=== PATIENT | male | born 1960 | race African-American/Black ===

== ENCOUNTER 2023-04-23 11:29 | Inpatient (IN) ==
[2023-04-23 12:40] LABS: BASOPHILS % (AUTO) 0.3 % (0.0-3.0); EOSINOPHILS % (AUTO) 0.6 % (0.0-7.0); HEMATOCRIT 36.6 % (42.0-52.0); HEMOGLOBIN 12.2 g/dl (14.0-18.0); IMMATURE GRANULOCYTE % (AUTO) 0.3 % (0.0-5.0); LYMPHOCYTES # (AUTO) 0.9 K/uL (0.60-3.4); LYMPHOCYTES % (AUTO) 26.3 (10.0-50.0); MEAN CORPUSCULAR HEMOGLOBIN 35.4 pg (27.0-31.0); MEAN CORPUSCULAR HGB CONC 33.3 (31.8-35.4); MEAN CORPUSCULAR VOLUME 106.1 fl (80.0-94.0); MONOCYTES # (AUTO) 0.3 K/uL (0.4-2.0); MONOCYTES % (AUTO) 9.8 (0-10); NEUTROPHILS # (AUTO) 2.1 K/ul (2.0-6.9); NEUTROPHILS % (AUTO) 62.7 % (42.2-75.2); PLATELET COUNT 221 10^3/uL (140-440); RED BLOOD COUNT 3.45 10^6/ul (4.70-6.10); WHITE BLOOD COUNT 3.27 K/ul (4.2-10.2)
--- NOTE | 2023-04-23 12:40 | ED.PDOC ---
General ED Provider: Dr. LILLIAM LYONS DO Chief Complaint: Abdominal Pain Stated Complaint: Patient is a 63 yo M here for multiple medical complaints Patient arrives afebrile and vitally stable He ambulated well to room 1 He reports headache, abdominal pain and discomfort He is a 1 PPD smoker He recently moved here from [place] and does not have a PCP He denies falls or injuries He does not feel as if he is getting sick No penile discharge or bleeding anywhere He is pleasant to talk too He has a cough but denies productive sputum He has a hx of BPH and a pending prostate BX he thinks, but cannot remember the details He can uriante as per usual, no discharge or new sexual partners Time Seen by Provider: 04/23/23 12:00 Information Source: Patient Nursing and Triage Documentation Reviewed and Agree: Yes What is Opioid Naive?: *Opioid Naive implies the patient is not already taking opioids or not chronically receiving opioids on a daily basis. *PRN dosing is not "usually" associated with tolerance. *Patients are at higher risk of over-sedation and aspiration. What is Opioid Tolerant?: *Opioid Tolerance implies less than the expected response to an opioid. *Acquired tolerance is defined by the patient taking 60mg of oral morphine daily (or equianalgesic dose of another opioid) for 1 week or more. *Often associated with chronic pain. *May take more than usual dose to achieve desired pain control. Review of Systems Review Of Systems Constitutional: Reports Malaise; Denies Chills or Fever Eyes: Denies Blindness or Vision change Ears, Nose, Mouth, Throat: Denies Ear pain, Nose pain or Nose discharge Respiratory: Reports Cough; Denies Stridor or Wheezing Cardiac: Denies Chest pain, Palpitations or Syncope GI: Reports Abdominal pain; Denies Nausea or Vomiting : Reports Other (decreased stream); Denies Burning, Dysuria or Discharge Musculoskeletal: Reports Back pain; Denies Joint pain Skin: Denies Bruising or Rash Neurological: Reports Headache; Denies Anxiety or Depressed Endocrine: Reports No symptoms Hematologic/Lymphatic: Reports No symptoms All Other Systems: Reviewed and Negative Physical Exam Physical Exam Appearance: Reports Well-appearing and Well-nourished Ill-appearing: Not Applicable Pain Distress: Mild Eyes: Reports SARAH, EOMI and Conjunctiva clear ENT: Reports Ears normal, Nose normal, Oropharynx normal and Other (Uvula midline, poor dentition) Neck: Supple Respiratory: Reports Airway patent and Breath sounds clear; Denies Wheezes Cardiovascular: Reports RRR and Pulses normal GI/: Reports Soft, Nontender and Other (no guarding, no peritonitis negative stewart sign no [place] ttp, no fluid wave) Musculoskeletal: Reports Normal strength, ROM intact and No edema Skin: Reports Warm and Dry Neurological: Reports Sensation intact and Motor intact Psychiatric: Reports Affect appropriate and Mood appropriate Interpretation EKG Interpretation EKG Interpretation By: ED Physician Time of EKG #1: 12:22 Rate: Shay Rhythm: Sinus Interpretation: rate 58 no stemi qt wnl Radiology Interpretation Radiology Interpretation By: ED Physician Radiology Results: Negative Exam Interpreted: CXR Xray Comments: No gross pneumothorax or rib fractures Course Course 04/23/23 12:35 04/23/23 12:35 Orders, Labs, Meds: Lab Review 04/23/23 04/23/23 12:25 12:35 WBC 3.27 L RBC 3.45 L Hgb 12.2 L Hct 36.6 L MCV 106.1 H MCH 35.4 H MCHC 33.3 RDW Coeff of Sydni 13.0 Plt Count 221 Immature Gran % (Auto) 0.3 Neut % (Auto) 62.7 Lymph % (Auto) 26.3 [place] % (Auto) 9.8 Eos % (Auto) 0.6 Baso % (Auto) 0.3 Neut # (Auto) 2.1 Lymph # (Auto) 0.9 [place] # (Auto) 0.3 L Eos # (Auto) 0.0 Baso # (Auto) 0.0 Immature Gran # (Auto) 0.0 Sodium 138.3 Potassium 4.67 Chloride 105.0 Carbon Dioxide 25.3 Anion Gap 12.67 BUN 50.0 H Creatinine 4.26 H* Estimated GFR (MDRD) 17.00 BUN/Creatinine Ratio 11.73 Glucose 99.0 Lactic Acid 0.64 L Calcium 10.30 H Total Bilirubin 0.67 AST 39.2 ALT 31.6 Alkaline Phosphatase 75.9 Troponin I < 0.012 Total Protein 8.62 H Albumin 4.25 Globulin 4.37 Albumin/Globulin Ratio 0.97 Lipase 137.2 Urine Color Yellow Urine Clarity Clear Urine pH 5.5 Ur Specific [place] 1.015 Urine Protein 1+ H Urine Glucose (UA) Negative Urine Ketones Negative Urine Blood 1+ H Urine Nitrite Negative Urine Bilirubin Negative Urine Urobilinogen 0.2 Ur Leukocyte Esterase Negative Urine Microscopic RBC 0-2 Ur Squamous Epith Cells Not Reportable Amorphous Sediment 2+ Influ A Molecular Assay Negative by naat Influ B Molecular Assay Negative by naat RSV Antigen Negative by naat SARS CoV-2 RNA Rapid JAMESON Negative Orders Category Date Time Status ADMIT PATIENT INPATIENT .TO MEDSURG (NON-MONITORED ADMISSION 04/23/23 14:26 Active BED) EKG-(ED ONLY) Stat CARDIO 04/23/23 12:15 Completed BLADDER SCAN ONCE CARE 04/23/23 13:03 Active NPO REMINDER: IMAGING ONCE CARE 04/23/23 12:16 Completed CBC W/ AUTO DIFF Stat LAB 04/23/23 12:35 Completed COMPREHENSIVE METABOLIC PANEL Stat LAB 04/23/23 12:35 Completed FLU A & B MOLECULAR [FLU A/B MOLECULAR] Stat LAB 04/23/23 12:25 Completed LACTIC ACID Stat LAB 04/23/23 12:35 Completed LIPASE Stat LAB 04/23/23 12:35 Completed RSV Stat LAB 04/23/23 12:25 Completed SARS COV-2 RNA RAPID JAMESON Stat LAB 04/23/23 12:25 Completed TROPONIN I Stat LAB 04/23/23 12:35 Completed URINALYSIS C & S IF INDICATED Stat LAB 04/23/23 12:25 Completed Sodium Chloride 0.9% [Sodium Chloride] 1,000 ml Meds 04/23/23 13:[address] ABDOMEN/PELVIS WO CONTRAST Stat RADS 04/23/23 13:[address] HEAD W/O CONTRAST Stat RADS 04/23/23 12:18 Completed CXR [CHEST, 2 VIEWS PA & LAT] Stat RADS 04/23/23 12:17 Completed Medications Discontinued Medications Generic Name Dose Route Start Last Admin Trade Name Freq PRN Reason Stop Dose Admin Sodium Chloride 1,000 mls @ 1,000 mls/hr 04/23/23 13:03 04/23/23 13:12 Sodium Chloride IV 04/23/23 14:02 1,000 mls/hr BOLUS ONE Administration Vital Signs: Temp Pulse Resp BP Pulse Ox 04/23/23 11:34 97.4 F L 71 18 117/81 99 MDM: Patient is a 63 yo M here for headache back ache and abdominal pain Patient afebrile and vitally stable Patient is a poor historian Exam reassuring 3+ labs and 3 images reviewed by me COnsult: Hospitalist JAMES Goff agrees with admission for treatment WDX: ARF, anemia, AAA (known), bladder wall hypertrophy acute moderate complexity DDX: I considered sepsis, shock, obstructive uropathy but these were not found Patient aware of AAA and iliac AA aneurysm, he has future appointment for BPH, prostate BX Patient amenable for admission for idiopathic ARF Patient stable for admission All questions answered SDOH: Patient needs to quit smoking and establish with a PCP Discharge Plan Discharge Patient Disposition: ADMITTED INPATIENT Discharge Problem: Acute renal failure, AAA (abdominal aortic aneurysm), Anemia, Aneurysm artery, iliac, Leukopenia, Bladder wall thickening Did you review [place] PHYSICIAN PRACTICE CONSULTANT for ALL controlled substances?: Not Applicable ED Provider: LILLIAM LYONS Condition: Good Physician Progress Note: []
[2023-04-23 12:44] LABS: MOLECULAR FLU A NEGATIVE BY NAAT (NEGATIVE); SARS COV-2 RNA RAPID NAAT NEGATIVE (NEGATIVE)
[2023-04-23 12:45] LABS: MOLECULAR FLU B NEGATIVE BY NAAT (NEGATIVE)
[2023-04-23 12:46] LABS: BILIRUBIN,URINE Negative (NEGATIVE); CLARITY,URINE Clear (CLEAR); COLOR,URINE Yellow (YELLOW); GLUCOSE, URINE (UA) Negative (NEGATIVE); KETONES,URINE Negative (NEGATIVE); LEUKOCYTE ESTERASE ,URINE Negative (NEGATIVE); NITRITE,URINE Negative (NEGATIVE); PH,URINE 5.5 (5-9); PROTEIN,URINE 1+ (NEGATIVE); URINE, BLOOD 1+ (NEGATIVE); UROBILINOGEN,URINE 0.2 (0.2)
[2023-04-23 12:49] LABS: URINE RBC, MICROSCOPIC 0-2 (0-2)
[2023-04-23 12:50] LABS: AMORPHOUS SEDIMENT,UR 2+ (NOT PRESENT)
[2023-04-23 12:52] LABS: ALANINE AMINOTRANSFERASE 31.6 U/L (0-50); ALBUMIN 4.25 g/dL (3.5-5.0); ALKALINE PHOSPHATASE 75.9 U/L (56-119); ASPARTATE AMINO TRANSFERASE 39.2 U/L (17-59); BILIRUBIN,TOTAL 0.67 mg/dL (0.2-1.3); CARBON DIOXIDE 25.3 mmol/L (22-30.0); LIPASE 137.2 U/L (23-300); POTASSIUM 4.67 mmol/L (3.5-5.1); SODIUM 138.3 mmol/L (134.5-145); TOTAL PROTEIN 8.62 g/dL (6.3-8.2)
[2023-04-23 12:54] LABS: RSV MOLECULAR NEGATIVE BY NAAT (NEGATIVE)
[2023-04-23 13:03] LABS: CREATININE 4.26 mg/dL (0.60-1.10)
[2023-04-23 13:06] LABS: TROPONIN I < 0.012 ng/ml (0.0000-0.120)
[2023-04-23] MEDS: SODIUM CHLORIDE 1,000 ML IV ONE (13:12)
--- NOTE | 2023-04-23 13:52 | DI ---
EXAM: CHEST TWO-VIEW HISTORY: Cough COMPARISON: 02/28/2020 FINDINGS: Cardiac silhouette and mediastinum are normal. There is no pulmonary infiltrate.There is no pleural effusion. Skeletal structures unremarkable IMPRESSION: Negative chest. No active cardiopulmonary disease
--- NOTE | 2023-04-23 13:54 | CT ---
EXAMINATION: HEAD CT WITHOUT CONTRAST HISTORY: Frontal headache. No trauma. TECHNIQUE: Noncontrast CT of the brain was performed with images acquired from skull base to vertex. 2-D coronal and sagittal reformatted images were obtained from the axial source images. CT Dose Reduction Techniques Performed: Yes. Contrast: None. COMPARISON: None. FINDINGS: Intraparenchymal hemorrhage: None. Parenchyma: Normal sanchez-white differentiation. No mass effect or midline shift. White matter is with in normal limits for age. Ventricles/Extra-axial spaces and basal cisterns: The ventricles and cortical sulci are mildly promin ent consistent with age related changes. There is no hydrocephalus . Paranasal sinuses and mastoid air cells: Visualized portions of paranasal sinuses are clear. Mastoid air cells are clear. Orbits: Normal visualized portions. Sella/Skull Base: Normal. Bones: Calvarium is normal. Scalp/Soft Tissues: Scalp and visualized soft tissues are normal. IMPRESSION: 1. No intracranial hemorrhage. 2. No acute findings. All CT scans are performed using dose optimization techniques as appropriate to the performed exam an d include at least one of the following: Automated exposure control, adjustment of the mA and/or kV according t o size, and the use of iterative reconstruction technique.
--- NOTE | 2023-04-23 14:10 | CT ---
EXAM: CT ABDOMEN AND PELVIS WITHOUT CONTRAST HISTORY: Abdominal pain. Acute kidney injury. TECHNIQUE: CT acquisition of the abdomen and pelvis from the lower thorax through the pelvis without IV contrast administration. 2-D coronal and sagittal reformatted images were obtained from the axial source images. Oral Contrast: None. CT Dose Reduction Techniques Performed: Yes. COMPARISON: CT abdomen from 12/03/[address] abdomen/pelvis from 07/25/2018. FINDINGS: Visualized portions of the lower chest included in this examination of the abdomen and pelvis again s how a calcified granuloma of the left lower lobe. Evaluation of the solid abdominal organs is limited without IV contrast. No obvious liver mass is id entified. No biliary tree dilatation. The gallbladder is present. Gallstones can not be excluded b y CT. The pancreas, spleen, and adrenal glands have a normal appearance. No stones identified in ei ther kidney, ureter, or the urinary bladder. No hydronephrosis. Mild asymmetric wall thickening of the bladder, predominately anteriorly. The prostate is prominent size, measuring 4.6 x 3.3 cm, about the same. Mild colonic diverticulosis. No evidence of diverticulitis. Nonvisualization of the abdi endix. No secondary signs of appendicitis. Small fat only containing umbilical and right inguinal h ernias, stable. Aneurysm of the infrarenal abdominal aorta, again noted. Measures 5.1 cm in maximum diameter, increased from 4.6 cm. Mild haziness in fat adjacent to the aortic bifurcation, similar to the prior study from July 2018. Aneurysm of the right common iliac artery, stable. Measures 2.5 cm. Aneurysm of the left common iliac artery, also stable. Measures 1.8 cm. No free air or free fluid. No enlarged lymph nodes identified. Bone window images show no significant lytic or sclerotic bone lesions. IMPRESSION: 1. 5.1 cm aneurysm of the infrarenal abdominal aorta, increased in size from cm. Outpatient vascula r surgery consultation is recommended. 2. Stable 2.5 cm aneurysm of the right common iliac artery and 1.8 cm aneurysm of the left common il iac artery. 3. Mild asymmetric wall thickening of the bladder, abdominal anteriorly. I suspect represents eithe r bladder wall hypertrophy or cystitis. I would doubt but cannot exclude mass. All CT scans are performed using dose optimization techniques as appropriate to the performed exam an d include at least one of the following: Automated exposure control, adjustment of the mA and/or kV according t o size, and the use of iterative reconstruction technique.
[2023-04-23] MEDS ORDERED: ZOFRAN 4 MG/2 ML IVP PRN (15:13)
[2023-04-23] MEDS ORDERED: HUMALOG SUBCUT PRN (15:15)
--- NOTE | 2023-04-23 15:23 | PCM ---
Date of Service Date Seen by Provider: 04/23/23 Time Seen by Provider: 14:30 Admit Day/Time Admission Date: 04/23/23 Admission Time: 14:26 Reason for Admission Chief Complaint: ACUTE RENAL FAILURE Hospital Provider Hospital Provider: TONIA MARTINEZ PA-C, [facility] History of Present Illness History of Present Illness: Patient is a 63 year old male with pmhx of DMT2, BPH, elevated PSA, CAD s/p stent placement, hypertension who presented to the ER with complaints of a he adache and low back pain. Patient has a hard time characterizing symptoms or how long they've been going on. He states he's been taking a medicine for pain otc but doesn't know ingredients, states it just says "pain". He recently was prescribed an abx for ear pain, amoxicillin, which he states he finished. He was also recently started on jardiance for his DMT2, but he stopped it after only a week or two due to it making him not feel well. Denies drug use. Admits to alcohol use 3x weekly. In ER patient was found to have Cr of 4. BUN 50. Baseline in past month was Cr of 1, BUN 8. He is making urine. CT a/p without acute findings. He was given a liter of fluids. Case Discussed With Case Discussed With: Patient's case was discussed with the ER Physicians, Dr. Humphreys. [facility] Family History Other Poor historian Social History Smoking and tobacco status: Current every day smoker Allergies Allergies Allergy/AdvReac Type Severity Reaction Status Date / Time ibuprofen AdvReac Itching Verified 04/23/23 11:51 tramadol AdvReac Verified 04/23/23 11:51 Current Medications Home Medications metformin 1,000 mg tablet 1,000 mg PO BID 04/14/23 [History Confirmed 04/23/23 Last Taken Unknown] valsartan 160 mg tablet (Diovan) 160 mg PO DAILY 04/14/23 [History Confirmed 04/23/23 Last Taken Unknown] aspirin 81 mg capsule 81 mg PO DAILY 04/23/23 [History Confirmed 04/23/23 Last Taken Unknown] carvedilol 6.25 mg tablet 6.25 mg PO BID 04/23/23 [History Confirmed 04/23/23 Last Taken Unknown] clopidogrel 75 mg tablet 75 mg PO DAILY 04/23/23 [History Confirmed 04/23/23 Last Taken Unknown] rosuvastatin 40 mg tablet 40 mg PO DAILY 04/23/23 [History Confirmed 04/23/23 Last Taken Unknown] tadalafil 20 mg tablet 20 mg PO PRN PRN sexual activity 04/23/23 [History Confirmed 04/23/23 Last Taken Unknown] valsartan 160 mg-hydrochlorothiazide 12.5 mg tablet 1 tab PO DAILY 04/23/23 [History Confirmed 04/23/23 Last Taken Unknown] Home Acetaminophen (Acetaminophen 325 Mg Tablet) 650 mg PO Q4H PRN PRN Reason: Mild Pain Last Admin: 04/23/23 15:55 Dose: 650 mg Clopidogrel Bisulfate (Clopidogrel Bisulfate 75 Mg Tablet) 75 mg PO DAILY [facility] Lactated Ringer's (Lactated Ringers) 1,000 mls @ 100 mls/hr IV .Q10H [facility] Last Admin: 04/23/23 15:59 Dose: 100 mls/hr Insulin Human Lispro (Insulin Lispro 100 Unit/Ml Vial) 0 unit SUBCUT PRN PRN; Protocol PRN Reason: Hyperglycemia Nicotine (Nicotine 21 Mg Patch.Td24) 1 patch TD DAILY [facility] Last Admin: 04/23/23 15:57 Dose: 1 patch Ondansetron HCl (Ondansetron Hcl/Pf 4 Mg/2 Ml Sdv) 4 mg IVP Q6H PRN PRN Reason: Nausea / Vomiting Rosuvastatin Calcium (Rosuvastatin Calcium 10 Mg Tablet) 40 mg PO DAILY [facility] Discontinued Medications Sodium Chloride (Sodium Chloride) 1,000 mls @ 1,000 mls/hr IV BOLUS ONE Stop: 04/23/23 14:02 Last Admin: 04/23/23 13:12 Dose: 1,000 mls/hr Opioid Naive vs. Tolerant Does Patient Take Opioids?: No Is Patient Opioid Naive?: Yes What is Opioid Naive?: *Opioid Naive implies the patient is not already taking opioids or not chronically receiving opioids on a daily basis. *PRN dosing is not "usually" associated with tolerance. *Patients are at higher risk of over-sedation and aspiration. Is Patient Opioid Tolerant?: No What is Opioid Tolerant?: *Opioid Tolerance implies less than the expected response to an opioid. *Acquired tolerance is defined by the patient taking 60mg of oral morphine daily (or equianalgesic dose of another opioid) for 1 week or more. *Often associated with chronic pain. *May take more than usual dose to achieve desired pain control. Review of Systems Constitutional: Reports Fatigue and Weakness Head: Reports Normocephalic and Atraumatic Cardiovascular: Denies Chest pain, Chest Pressure or Edema Respiratory: Denies Cough or Shortness of air Gastrointestinal: Denies Nausea Genitourinary: Reports Frequency; Denies Dysuria or Hematuria Musculoskeletal: Reports Back Pain Neurological: Reports Headache Physical examination Most Recent Vital Signs: Most Recent Vital Signs Temperature 97.4 F L 04/23/23 11:34 Temperature Source Oral 04/23/23 11:34 Pulse Rate 71 04/23/23 11:34 Respiratory Rate 18 04/23/23 11:34 Blood Pressure 117/81 04/23/23 11:34 O2 Sat by Pulse Oximetry 99 04/23/23 11:34 Height 6 ft 04/23/23 11:34 Weight 190 lb 04/23/23 11:34 Appearance: Positive No Apparent Distress and Alert and Oriented x3 Skin: Positive Warm, Good Turgor and Good Color; Negative Rashes HEENT: Positive Normocephalic and Atraumatic Neck: Positive Supple and Midline Trachea Chest/Lungs: Positive Clear to Auscultation Bilaterally; Negative Rales, Rhonci or Wheezes Heart: Positive RRR GI/: Positive Soft, Nontender and Bowel Sounds Normal Extremities: Negative Edema Neurological: Positive Cranial Nerves Intact, Alert, Oriented and Muscle Strength 5/5 in Upper and Lower Extremities Bilaterally Psychiatric: Positive Oriented x4, Appropriate Mood and Appropriate Affect Labs This Visit Labs This Visit: Labs This Visit 04/23/23 04/23/23 12:25 12:35 WBC 3.27 L RBC 3.45 L Hgb 12.2 L Hct 36.6 L MCV 106.1 H MCH 35.4 H MCHC 33.3 RDW Coeff of Sydni 13.0 Plt Count 221 Immature Gran % (Auto) 0.3 Neut % (Auto) 62.7 Lymph % (Auto) 26.3 [place] % (Auto) 9.8 Eos % (Auto) 0.6 Baso % (Auto) 0.3 Neut # (Auto) 2.1 Lymph # (Auto) 0.9 [place] # (Auto) 0.3 L Eos # (Auto) 0.0 Baso # (Auto) 0.0 Immature Gran # (Auto) 0.0 Sodium 138.3 Potassium 4.67 Chloride 105.0 Carbon Dioxide 25.3 Anion Gap 12.67 BUN 50.0 H Creatinine 4.26 H* Estimated GFR (MDRD) 17.00 BUN/Creatinine Ratio 11.73 Glucose 99.0 Lactic Acid 0.64 L Calcium 10.30 H Total Bilirubin 0.67 AST 39.2 ALT 31.6 Alkaline Phosphatase 75.9 Troponin I < 0.012 Total Protein 8.62 H Albumin 4.25 Globulin 4.37 Albumin/Globulin Ratio 0.97 Lipase 137.2 Urine Color Yellow Urine Clarity Clear Urine pH 5.5 Ur Specific [place] 1.015 Urine Protein 1+ H Urine Glucose (UA) Negative Urine Ketones Negative Urine Blood 1+ H Urine Nitrite Negative Urine Bilirubin Negative Urine Urobilinogen 0.2 Ur Leukocyte Esterase Negative Urine Microscopic RBC 0-2 Ur Squamous Epith Cells Not Reportable Amorphous Sediment 2+ Influ A Molecular Assay Negative by naat Influ B Molecular Assay Negative by naat RSV Antigen Negative by naat SARS CoV-2 RNA Rapid JAMESON Negative Imaging Imaging: EXAM: CT ABDOMEN AND PELVIS WITHOUT CONTRAST HISTORY: Abdominal pain. Acute kidney injury. TECHNIQUE: CT acquisition of the abdomen and pelvis from the lower thorax through the pelvis without IV contrast administration. 2-D coronal and sagittal reformatted images were obtained from the axial source images. Oral Contrast: None. CT Dose Reduction Techniques Performed: Yes. COMPARISON: CT abdomen from 12/03/[address] abdomen/pelvis from 07/25/2018. FINDINGS: Visualized portions of the lower chest included in this examination of the abdomen and pelvis again show a calcified granuloma of the left lower lobe. Evaluation of the solid abdominal organs is limited without IV contrast. No obvious liver mass is identified. No biliary tree dilatation. The gallbladder is present. Gallstones can not be excluded by CT. The pancreas, spleen, and adrenal glands have a normal appearance. No stones identified in either kidney, ureter, or the urinary bladder. No hydronephrosis. Mild asymmetric wall thickening of the bladder, predominately anteriorly. The prostate is prominent size, measuring 4.6 x 3.3 cm, about the same. Mild colonic diverticulosis. No evidence of diverticulitis. Nonvisualization of the appendix. No secondary signs of appendicitis. Small fat only containing umbilical and right inguinal hernias, stable. Aneurysm of the infrarenal abdominal aorta, again noted. Malissa sures 5.1 cm in maximum diameter, increased from 4.6 cm. Mild haziness in fat adjacent to the aortic bifurcation, similar to the prior study from July 2018. Aneurysm of the right common iliac artery, stable. Measures 2.5 cm. Aneurysm of the left common iliac artery, also stable. Measures 1.8 cm. No free air or free fluid. No enlarged lymph nodes identified. Bone window images show no significant lytic or sclerotic bone lesions. IMPRESSION: 1. 5.1 cm aneurysm of the infrarenal abdominal aorta, increased in size from cm. Outpatient vascular surgery consultation is recommended. 2. Stable 2.5 cm aneurysm of the right common iliac artery and 1.8 cm aneurysm of the left common iliac artery. 3. Mild asymmetric wall thickening of the bladder, abdominal anteriorly. I suspect represents either bladder wall hypertrophy or cystitis. I would doubt but cannot exclude mass. EXAMINATION: HEAD CT WITHOUT CONTRAST HISTORY: Frontal headache. No trauma. TECHNIQUE: Noncontrast CT of the brain was performed with images acquired from skull base to vertex. 2-D coronal and sagittal reformatted images were obtained from the axial source images. CT Dose Reduction Techniques Performed: Yes. Contrast: None. COMPARISON: None. FINDINGS: Intraparenchymal hemorrhage: None. Parenchyma: Normal sanchez-white differentiation. No mass effect or midline shift. White matter is within normal limits for age. Ventricles/Extra-axial spaces and basal cisterns: The ventricles and cortical sulci are mildly prominent consistent with age related changes. There is no hydrocephalus . Paranasal sinuses and mastoid air cells: Visualized portions of paranasal sinuses are clear. Mastoid air cells are clear. Orbits: Normal visualized portions. Sella/Skull Base: Normal. Bones: Calvarium is normal. Scalp/Soft Tissues: Scalp and visualized soft tissues are normal. IMPRESSION: 1. No intracranial hemorrhage. 2. No acute findings. EXAM: CHEST TWO-VIEW HISTORY: Cough COMPARISON: 02/28/2020 FINDINGS: Cardiac silhouette and mediastinum are normal. There is no pulmonary infiltrate.There is no pleural effusion. Skeletal structures unremarkable IMPRESSION: Negative chest. No active cardiopulmonary disease Review Statement Review Statement: I have independently reviewed and interpreted the labs/EKGs/imaging that were ordered by the ER provider. I have reviewed all outside records that are available currently in our EMR including imaging/notes/labs from previous visits. Plan Plan: 1. Acute kidney injury, stage II - Cr 4, BUN 50, baseline 03/10. Urine Cr and urine Na ordered. UDS. LR at 100 ml/hr ordered. I&Os. No clear etiology at this point. 2. Hypertension - Hold hctz/valsartan 3. DMT2 - Hold metformin. Humalog sliding scale, accuchecks achs, diabetic diet 4. Multiple abdominal aneurysms - Needs outpatient vascular f/u 5. Hyperlipidemia - Cont home meds 6. Elevated PSA - Being worked up outpatient w/ urology for prostate cancer. DVT Prophylaxis: Ambulation Time Spent: Greater than 80 minutes spent with patient, 50% of the time spent with this patient was devoted to counseling and coordination of care. [facility] minutes spent discussing advance care planning. Smoking Cessation: 3 minutes spent discussing smoking cessation. Admit to: Inpatient Discussed Plan of Care with Dr. Kirit Harris. Medications Medication Orders: Medications Ordered Category Date Time Status Acetaminophen [Tylenol] Meds 04/23/23 15:13 Ordered 650 mg PO Q4H PRN Insulin Lispro [Humalog] Meds 04/23/23 15:15 Ordered See Protocol SUBCUT PRN PRN Ondansetron HCl/Pf [Zofran 4 mg/2 ml] Meds 04/23/23 15:13 Ordered 4 mg IVP Q6H PRN Ringers Lactated Solution [Lactated Ringers] 1,000 ml Meds 04/23/23 15:30 Ordered IV 100 mls/hr
[2023-04-23] MEDS: TYLENOL PO PRN (15:55)
[2023-04-23] MEDS: NICODERM 21 MG TD SCH (15:57)
[2023-04-23] MEDS: LACTATED RINGERS 1,000 ML IV SCH (15:59)
[2023-04-23 16:02] VITALS: BMI 25.2
[2023-04-23 19:47] LABS: AMPHETAMINE SCREEN,URINE NEGATIVE (NEGATIVE); BARBITURATE SCREEN,URINE NEGATIVE (NEGATIVE); BENZODIAZEPINES SCREEN,URINE NEGATIVE (NEGATIVE); CANNABINOID SCREEN,URINE NEGATIVE (NEGATIVE); COCAIN SCREEN,URINE NEGATIVE (NEGATIVE); METHADONE URINE SCREEN NEGATIVE (NEGATIVE); METHAMPHETAMINES SCREEN,URINE NEGATIVE (NEGATIVE); OPIATE SCREEN,URINE NEGATIVE (NEGATIVE); OXYCODONE URINE SCREEN NEGATIVE (NEGATIVE); PHENCYCLIDINE SCREEN,URINE NEGATIVE (NEGATIVE); TRICYCLIC ANTIDEPRESSANTS URIN NEGATIVE (NEGATIVE)
[2023-04-23] MEDS: NORCO 5-325 PO ONE (20:44)
[2023-04-23] MEDS: COREG PO SCH (20:44)
[2023-04-23] MEDS: LIDODERM 5 % PATCH TP ONE (23:23)
[2023-04-23] MEDS: SUBLIMAZE IVP ONE (23:24)
[2023-04-24 05:35] LABS: BASOPHILS % (AUTO) 0.3 % (0.0-3.0); EOSINOPHILS % (AUTO) 0.3 % (0.0-7.0); HEMATOCRIT 33.1 % (42.0-52.0); HEMOGLOBIN 10.8 g/dl (14.0-18.0); IMMATURE GRANULOCYTE % (AUTO) 0.3 % (0.0-5.0); LYMPHOCYTES # (AUTO) 0.8 K/uL (0.60-3.4); LYMPHOCYTES % (AUTO) 24.1 (10.0-50.0); MEAN CORPUSCULAR HEMOGLOBIN 34.4 pg (27.0-31.0); MEAN CORPUSCULAR HGB CONC 32.6 (31.8-35.4); MEAN CORPUSCULAR VOLUME 105.4 fl (80.0-94.0); MONOCYTES # (AUTO) 0.3 K/uL (0.4-2.0); MONOCYTES % (AUTO) 10.3 (0-10); NEUTROPHILS # (AUTO) 2.1 K/ul (2.0-6.9); NEUTROPHILS % (AUTO) 64.7 % (42.2-75.2); PLATELET COUNT 202 10^3/uL (140-440); RDW COEFFICIENT OF VARIATION 12.8 % (11.6-14.8); RED BLOOD COUNT 3.14 10^6/ul (4.70-6.10)
[2023-04-24 06:27] LABS: ALANINE AMINOTRANSFERASE 27.2 U/L (0-50); ALBUMIN 3.79 g/dL (3.5-5.0); ALKALINE PHOSPHATASE 79.5 U/L (56-119); ASPARTATE AMINO TRANSFERASE 39.5 U/L (17-59); BILIRUBIN,TOTAL 0.51 mg/dL (0.2-1.3); BLOOD UREA NITROGEN 43.4 mg/dL (9-20); CALCIUM 9.35 mg/dL (8.4-10.2); CARBON DIOXIDE 21.3 mmol/L (22-30.0); CHLORIDE 109.2 mmol/L (98-107); GLUCOSE 124.2 mg/dL (74-106); POTASSIUM 4.09 mmol/L (3.5-5.1); SODIUM 135.9 mmol/L (134.5-145); TOTAL PROTEIN 7.46 g/dL (6.3-8.2)
[2023-04-24 06:28] LABS: CREATININE 2.8 mg/dL (0.60-1.10)
[2023-04-24] MEDS: COREG PO SCH (09:23)
[2023-04-24] MEDS: PLAVIX PO SCH (09:23)
[2023-04-24] MEDS: CRESTOR PO SCH (09:26)
--- NOTE | 2023-04-24 09:36 | PCM.PROG ---
Date/Time Seen Date Seen by Provider: 04/24/23 Time Seen by Provider: 09:00 Provider Provider: TONIA MARTINEZ PA-C, [facility] Chief Complaint Chief Complaint: ACUTE RENAL FAILURE Subjective Subjective: Patient states he's feeling some better. He has complained of back pain. Got some relief with fentanyl and lidocaine patch last night. States it's his low back and into his hips. Has been ongoing for past week at least. Objective Appearance: Positive No Apparent Distress and Alert and Oriented x3 Chest/Lungs: Positive Clear to Auscultation Bilaterally; Negative Rales, Rhonci or Wheezes Heart: Positive RRR GI/: Positive Soft, Nontender, Bowel Sounds Normal and No Distention Neurological: Positive Cranial Nerves Intact, Alert, Oriented and Muscle Strength 5/5 in Upper and Lower Extremities Bilaterally Vital Signs Vital Signs: Vital Signs: Last 24 Hours 04/23/23 11:34 04/23/23 15:34 04/23/23 15:34 Temperature 97.4 F L 97.2 F L Temperature Source Oral Oral Pulse Rate 71 53 L Pulse Rate [Apical] 52 L Respiratory Rate 18 16 18 Blood Pressure 117/81 Blood Pressure Mean Blood Pressure Right Arm 155/79 Blood Pressure Location Blood Pressure Position Supine O2 Sat by Pulse Oximetry 99 99 Oxygen Delivery Method Room Air Room Air Height 6 ft 6 ft Weight 190 lb 186 lb 04/23/23 17:57 04/23/23 20:00 04/23/23 20:36 Temperature 97.2 F L 97.5 F L Temperature Source Oral Temporal Artery Scan Pulse Rate 53 L 53 L Pulse Rate [Apical] Respiratory Rate 16 20 Blood Pressure 155/79 H 138/90 Blood Pressure Mean 104 106 Blood Pressure Right Arm Blood Pressure Location Right Arm Left Arm Blood Pressure Position Supine Supine O2 Sat by Pulse Oximetry 99 99 Oxygen Delivery Method Room Air Room Air Room Air Height Weight 04/24/23 02:00 04/24/23 05:32 Temperature 97.8 F 97.1 F L Temperature Source Temporal Artery Scan Temporal Artery Scan Pulse Rate 55 L 54 L Pulse Rate [Apical] Respiratory Rate 20 16 Blood Pressure 157/90 H 164/90 H Blood Pressure Mean 112 114 Blood Pressure Right Arm Blood Pressure Location Left Arm Right Arm Blood Pressure Position Supine Supine O2 Sat by Pulse Oximetry 100 97 Oxygen Delivery Method Room Air Room Air Height Weight Lab Results Lab Results: Lab Results: Last 24 Hours 04/24/23 04/23/23 04/23/23 05:28 19:25 12:35 WBC 3.20 L 3.27 L RBC 3.14 L 3.45 L Hgb 10.8 L 12.2 L Hct 33.1 L 36.6 L MCV 105.4 H 106.1 H MCH 34.4 H 35.4 H MCHC 32.6 33.3 RDW Coeff of Sydni 12.8 13.0 Plt Count 202 221 Immature Gran % (Auto) 0.3 0.3 Neut % (Auto) 64.7 62.7 Lymph % (Auto) 24.1 26.3 [place] % (Auto) 10.3 H 9.8 Eos % (Auto) 0.3 0.6 Baso % (Auto) 0.3 0.3 Neut # (Auto) 2.1 2.1 Lymph # (Auto) 0.8 0.9 [place] # (Auto) 0.3 L 0.3 L Eos # (Auto) 0.0 0.0 Baso # (Auto) 0.0 0.0 Immature Gran # (Auto) 0.0 0.0 Sodium 135.9 138.3 Potassium 4.09 4.67 Chloride 109.2 H 105.0 Carbon Dioxide 21.3 L 25.3 Anion Gap 9.49 12.67 BUN 43.4 H 50.0 H Creatinine 2.80 H D 4.26 H* Estimated GFR (MDRD) 28.00 17.00 BUN/Creatinine Ratio 15.50 11.73 Glucose 124.2 H 99.0 Lactic Acid 0.64 L Calcium 9.35 10.30 H Total Bilirubin 0.51 0.67 AST 39.5 39.2 ALT 27.2 31.6 Alkaline Phosphatase 79.5 75.9 Troponin I < 0.012 Total Protein 7.46 8.62 H Albumin 3.79 4.25 Globulin 3.67 4.37 Albumin/Globulin Ratio 1.03 0.97 Lipase 137.2 Urine Color Urine Clarity Urine pH Ur Specific [place] Urine Protein Urine Glucose (UA) Urine Ketones Urine Blood Urine Nitrite Urine Bilirubin Urine Urobilinogen Ur Leukocyte Esterase Urine Microscopic RBC Ur Squamous Epith Cells Amorphous Sediment Urine Opiates Screen Negative Ur Oxycodone Screen Negative Urine Methadone Screen Negative Ur Barbiturates Screen Negative U Tricyclic Antidepress Negative Ur Phencyclidine Scrn Negative Ur Amphetamine Screen Negative U Methamphetamines Scrn Negative U Benzodiazepines Scrn Negative Urine Cocaine Screen Negative U Cannabinoids Screen Negative Influ A Molecular Assay Influ B Molecular Assay RSV Antigen SARS CoV-2 RNA Rapid JAMESON 04/23/23 12:25 WBC RBC Hgb Hct MCV MCH MCHC RDW Coeff of Sydni Plt Count Immature Gran % (Auto) Neut % (Auto) Lymph % (Auto) [place] % (Auto) Eos % (Auto) Baso % (Auto) Neut # (Auto) Lymph # (Auto) [place] # (Auto) Eos # (Auto) Baso # (Auto) Immature Gran # (Auto) Sodium Potassium Chloride Carbon Dioxide Anion Gap BUN Creatinine Estimated GFR (MDRD) BUN/Creatinine Ratio Glucose Lactic Acid Calcium Total Bilirubin AST ALT Alkaline Phosphatase Troponin I Total Protein Albumin Globulin Albumin/Globulin Ratio Lipase Urine Color Yellow Urine Clarity Clear Urine pH 5.5 Ur Specific [place] 1.015 Urine Protein 1+ H Urine Glucose (UA) Negative Urine Ketones Negative Urine Blood 1+ H Urine Nitrite Negative Urine Bilirubin Negative Urine Urobilinogen 0.2 Ur Leukocyte Esterase Negative Urine Microscopic RBC 0-2 Ur Squamous Epith Cells Not Reportable Amorphous Sediment 2+ Urine Opiates Screen Ur Oxycodone Screen Urine Methadone Screen Ur Barbiturates Screen U Tricyclic Antidepress Ur Phencyclidine Scrn Ur Amphetamine Screen U Methamphetamines Scrn U Benzodiazepines Scrn Urine Cocaine Screen U Cannabinoids Screen Influ A Molecular Assay Negative by naat Influ B Molecular Assay Negative by naat RSV Antigen Negative by naat SARS CoV-2 RNA Rapid JAMESON Negative Additional Comments Additional Comments: I have independently reviewed and interpreted the labs/EKGs/imaging ordered during this hospital stay. I have reviewed outside records that are available in our EMR that pertain to medical stay including imaging/notes/labs from previous visits. Active Medications Active Medications: Medications Generic Name Dose Route Start Last Admin Trade Name Freq PRN Reason Stop Dose Admin Acetaminophen 650 mg 04/23/23 15:13 04/24/23 09:31 Acetaminophen 325 Mg Tablet PO 650 mg Q4H PRN Administration Mild Pain Carvedilol 6.25 mg 04/24/23 07:30 04/24/23 09:23 Carvedilol 6.25 Mg Tablet PO 6.25 mg [id number] BRITNEY Administration Clopidogrel Bisulfate 75 mg 04/24/23 09:00 04/24/23 09:23 Clopidogrel Bisulfate 75 Mg Tablet PO 75 mg DAILY BRITNEY Administration Lactated Ringer's 1,000 mls @ 100 mls/hr 04/23/23 15:30 04/24/23 01:51 Lactated Ringers IV 100 mls/hr .Q10H BRITNEY Administration Insulin Human Lispro 0 unit 04/23/23 15:15 Insulin Lispro 100 Unit/Ml Vial SUBCUT PRN PRN Hyperglycemia Protocol Nicotine 1 patch 04/23/23 15:45 04/23/23 15:57 Nicotine 21 Mg Patch.Td24 TD 1 patch DAILY BRITNEY Administration Ondansetron HCl 4 mg 04/23/23 15:13 Ondansetron Hcl/Pf 4 Mg/2 Ml Sdv IVP Q6H PRN Nausea / Vomiting Rosuvastatin Calcium 40 mg 04/24/23 09:00 04/24/23 09:26 Rosuvastatin Calcium 10 Mg Tablet PO 40 mg DAILY BRITNEY Administration Plan Plan: 1. Acute kidney injury, stage II - Improved. Initial Cr 4, BUN 50, baseline 03/10. Urine Cr and urine Na ordered. UDS negative. Cont LR at 100 ml/hr ordered. I&Os. No clear etiology at this point. Could be multifactoral from recent jardiance use, otc "pain medication" (unknown ingredients), in addition to his hctz/valsartan/metformin. 2. Hypertension - Hold hctz/valsartan 3. DMT2 - Hold metformin. Humalog sliding scale, accuchecks achs, diabetic diet 4. Multiple abdominal aneurysms - Needs outpatient vascular f/u 5. Hyperlipidemia - Cont home meds 6. Elevated PSA - Being worked up outpatient w/ urology for prostate cancer. 7. Low back/hip pain - CT lumbar spine and pelvis ordered. Likely benign in nature but with being worked up for prostate CA will r/o lytic lesions as etiology of pain. Review Statement Review Statement: I have personally discussed and reviewed the patient's visit/currently labs/imaging/decision making with Dr. Harris, my supervising attending. Greater that 50 minutes spent with patient, 50% of the time spent with this patient was devoted to counseling and coordination of care.
[2023-04-24] MEDS ORDERED: LIDOCAINE OINTMENT 5% TP SCH (10:00)
[2023-04-24] MEDS: LIDODERM 5 % PATCH TP SCH (11:01)
--- NOTE | 2023-04-24 11:57 | CT ---
EXAM: CT OF THE LUMBAR SPINE WITHOUT CONTRAST. HISTORY: Low back pain COMPARISON: 06/02/2018 MRI TECHNIQUE: Axial noncontrast CT of the lumbar spine with sagittal and coronal reformats. FINDINGS: The lumbar vertebral bodies are normal in height. No lumbar spine fractures are seen. There is mild L3-4, moderate L4-5 and severe L5-S1 disc height loss with anterior osteophyte formation. 4 mm of p osterior listhesis is seen at L5-S1. Multilevel facet arthropathy is identified abdominal aortic ane urysm is partially imaged. T12-L1: No disc bulge or disc herniation. Mild facet arthropathy. No foraminal or spinal canal stenos is. L1-L2: No disc bulge or herniation. Mild facet arthropathy. No foraminal or spinal canal stenosis. L2-L3: Minimal disc bulge. Mild to moderate facet arthropathy. No foraminal or spinal canal stenosi s. L3-L4: Small disc bulge. Mild facet arthropathy. Minimal bilateral foraminal stenosis. No spinal c anal stenosis. L4-L5: Small disc bulge. Minimal bilateral foraminal stenosis and minimal narrowing of the spinal can al. L5-S1: Disc osteophyte complex. Minimal bilateral foraminal stenosis and no spinal canal stenosis. IMPRESSION: No acute osseous abnormality of the lumbar spine. Multilevel degenerative disc disease, up to severe at L5-S1. 4 mm posterior listhesis at L5-S1. Mild multilevel facet arthropathy. No significant foraminal or spinal canal stenosis. Partially imaged abdominal aortic aneurysm. Please see 04/23/[address] scans are performed using dose optimization techniques as appropriate to the performed exam an d include at least one of the following: Automated exposure control, adjustment of the mA and/or kV according t o size, and the use of iterative reconstruction technique.
[2023-04-24] MEDS: FLEXERIL PO ONE (21:31)
[2023-04-25 03:12] LABS: CREATININE, URINE 105.4 mg/dL (Not Estab.)
[2023-04-25 05:59] LABS: BASOPHILS % (AUTO) 0.4 % (0.0-3.0); HEMATOCRIT 30.7 % (42.0-52.0); HEMOGLOBIN 10.3 g/dl (14.0-18.0); IMMATURE GRANULOCYTE % (AUTO) 0.4 % (0.0-5.0); LYMPHOCYTES # (AUTO) 0.8 K/uL (0.60-3.4); LYMPHOCYTES % (AUTO) 26.7 (10.0-50.0); MEAN CORPUSCULAR HEMOGLOBIN 35.4 pg (27.0-31.0); MEAN CORPUSCULAR HGB CONC 33.6 (31.8-35.4); MEAN CORPUSCULAR VOLUME 105.5 fl (80.0-94.0); MONOCYTES # (AUTO) 0.3 K/uL (0.4-2.0); MONOCYTES % (AUTO) 10.2 (0-10); NEUTROPHILS # (AUTO) 1.8 K/ul (2.0-6.9); NEUTROPHILS % (AUTO) 62.3 % (42.2-75.2); PLATELET COUNT 192 10^3/uL (140-440); RDW COEFFICIENT OF VARIATION 12.8 % (11.6-14.8); RED BLOOD COUNT 2.91 10^6/ul (4.70-6.10); WHITE BLOOD COUNT 2.85 K/ul (4.2-10.2)
[2023-04-25 06:07] LABS: ALANINE AMINOTRANSFERASE 26.1 U/L (0-50); ALBUMIN 3.63 g/dL (3.5-5.0); ALKALINE PHOSPHATASE 74.9 U/L (56-119); ASPARTATE AMINO TRANSFERASE 37.3 U/L (17-59); BILIRUBIN,TOTAL 0.46 mg/dL (0.2-1.3); BLOOD UREA NITROGEN 28.6 mg/dL (9-20); CALCIUM 9.4 mg/dL (8.4-10.2); CARBON DIOXIDE 23.5 mmol/L (22-30.0); CHLORIDE 109.2 mmol/L (98-107); GLUCOSE 166.7 mg/dL (74-106); POTASSIUM 3.65 mmol/L (3.5-5.1); SODIUM 137.7 mmol/L (134.5-145); TOTAL PROTEIN 7.12 g/dL (6.3-8.2)
[2023-04-25 06:29] LABS: CREATININE 2.23 mg/dL (0.60-1.10)
[2023-04-25] MEDS: NORVASC PO SCH (08:28)
--- NOTE | 2023-04-25 10:21 | DCSUM ---
Admission Date Admission Date: 04/23/23 Discharge Date Discharge Date: 04/25/23 Admission Diagnosis Admission Diagnosis: 1. MYRON, stage II Discharge Diagnosis Discharge Diagnosis: 1. Acute kidney injury, stage II - Improved. 2. Hypertension 3. DMT2 4. Multiple abdominal aneurysms 5. Hyperlipidemia 6. Elevated PSA 7. Low back/hip pain 8. Left [facility] Hospital Provider Hospital Provider: [facility] Summary of History and Physical Summary of History and Physical: Patient is a 63 year old male with pmhx of DMT2, BPH, elevated PSA, CAD s/p stent placement, hypertension who presented to the ER with complaints of a headache and low back pain. Patient has a hard time characterizing symptoms or how long they've been going on. He states he's been taking a medicine for pain otc but doesn't know ingredients, states it just says "pain". He recently was prescribed an abx for ear pain, amoxicillin, which he states he finished. He was also recently started on jardiance for his DMT2, but he stopped it after only a week or two due to it making him not feel well. Denies drug use. Admits to alcohol use 3x weekly. In ER patient was found to have Cr of 4. BUN 50. Baseline in past month was Cr of 1, BUN 8. He is making urine. CT a/p without acute findings. He was given a liter of fluids. Hospital Course Subjective: Patient fena was 0.9% indicative of prerenal disease. Patient received fluids and Cr/BUN improved but not yet at baseline. Patient is frustrated and asking to leave [facility]. He is alert, oriented, and has mental capacity to make decisions for himself. We discussed his renal function not yet at baseline and would benefit from another day of fluids. Discussed risks including . He declines to stay at this time. No clear etiology other than on recent jardiance and a combination of his medications including valsartan, hctz, and metformin. Advised him to continue holding these until his pcp f/u next week. Amlodipine prescribed in place of these. Of note he continues to complain of low back pain. CT lumbar spine shows DDD of L5-S1 being the most severe. We trialed tylenol, lidocaine patches, hydrocodone, flexeril, and even fentanyl IV. He states nothing has helped. Discussed we are limited due to his renal function. He also has an allergy to tramadol. He frustrated that he "hasn't had anything for pain." Discussed staying today for more fluids and we could trial steroids while monitoring his sugars. However, he declines this option. Does wish to have steroids sent in for him. He's aware it could cause hyperglycemia. Patient ultimately left AMA. Vascular referral had been made by case management for his AAA. Appearance: No Apparent Distress and Alert HEENT: MMM CVS: No Murmur Abdomen: Soft, Non-Tender and No Distention Respiratory: No Accessory Muscle Use Extremities: No Edema Vital Signs: Most Recent Vital Signs Temperature 97.6 F 04/25/23 05:21 Temperature Source Temporal Artery Scan 04/25/23 05:21 Temperature Source Oral 04/23/23 11:34 Pulse Rate 58 L 04/25/23 05:21 Respiratory Rate 16 04/25/23 05:21 Blood Pressure 171/99 H 04/25/23 05:21 Blood Pressure Mean 123 04/25/23 05:21 Blood Pressure Right Arm 155/79 04/23/23 15:34 Blood Pressure Location Right Arm 04/25/23 05:21 Blood Pressure Position Supine 04/25/23 05:21 O2 Sat by Pulse Oximetry 98 04/25/23 05:21 Oxygen Delivery Method Room Air 04/25/23 05:21 Height 6 ft 04/25/23 08:59 Weight 186 lb 04/25/23 08:59 Imaging: EXAM: CT ABDOMEN AND PELVIS WITHOUT CONTRAST HISTORY: Abdominal pain. Acute kidney injury. TECHNIQUE: CT acquisition of the abdomen and pelvis from the lower thorax through the pelvis without IV contrast administration. 2-D coronal and sagittal reformatted images were obtained from the axial source images. Oral Contrast: None. CT Dose Reduction Techniques Performed: Yes. COMPARISON: CT abdomen from 12/03/[address] abdomen/pelvis from 07/25/2018. FINDINGS: Visualized portions of the lower chest included in this examination of the abdomen and pelvis again show a calcified granuloma of the left lower lobe. Evaluation of the solid abdominal organs is limited without IV contrast. No obvious liver mass is identified. No biliary tree dilatation. The gallbladder is present. Gallstones can not be excluded by CT. The pancreas, spleen, and adrenal glands have a normal appearance. No stones identified in either kidney, ureter, or the urinary bladder. No hydronephrosis. Mild asymmetric wall thickening of the bladder, predominately anteriorly. The prostate is prominent size, measuring 4.6 x 3.3 cm, about the same. Mild colonic diverticulosis. No evidence of diverticulitis. Nonvisualization of the appendix. No secondary signs of appendicitis. Small fat only containing umbilical and right inguinal hernias, stable. Aneurysm of the infrarenal abdominal aorta, again noted. Measures 5.1 cm in maximum diameter, increased from 4.6 cm. Mild haziness in fat adjacent to the aortic bifurcation, similar to the prior study from July 2018. Aneurysm of the right common iliac artery, stable. Measures 2.5 cm. Aneurysm of the left common iliac artery, also stable. Measures 1.8 cm. No free air or free fluid. No enlarged lymph nodes identified. Bone window images show no significant lytic or sclerotic bone lesions. IMPRESSION: 1. 5.1 cm aneurysm of the infrarenal abdominal aorta, increased in size from cm. Outpatient vascular surgery consultation is recommended. 2. Stable 2.5 cm aneurysm of the right common iliac artery and 1.8 cm aneurysm of the left common iliac artery. 3. Mild asymmetric wall thickening of the bladder, abdominal anteriorly. I suspect represents either bladder wall hypertrophy or cystitis. I would doubt but cannot exclude mass. EXAMINATION: HEAD CT WITHOUT CONTRAST HISTORY: Frontal headache. No trauma. TECHNIQUE: Noncontrast CT of the brain was performed with images acquired from skull base to vertex. 2-D coronal and sagittal reformatted images were obtained from the axial source images. CT Dose Reduction Techniques Performed: Yes. Contrast: None. COMPARISON: None. FINDINGS: Intraparenchymal hemorrhage: None. Parenchyma: Normal sanchez-white differentiation. No mass effect or midline shift. White matter is within normal limits for age. Ventricles/Extra-axial spaces and basal cisterns: The ventricles and cortical sulci are mildly prominent consistent with age related changes. There is no hydrocephalus . Paranasal sinuses and mastoid air cells: Visualized portions of paranasal sinuses are clear. Mastoid air cells are clear. Orbits: Normal visualized portions. Sella/Skull Base: Normal. Bones: Calvarium is normal. Scalp/Soft Tissues: Scalp and visualized soft tissues are normal. IMPRESSION: 1. No intracranial hemorrhage. 2. No acute findings. EXAM: CHEST TWO-VIEW HISTORY: Cough COMPARISON: 02/28/2020 FINDINGS: Cardiac silhouette and mediastinum are normal. There is no pulmonary infiltrate.There is no pleural effusion. Skeletal structures unremarkable IMPRESSION: Negative chest. No active cardiopulmonary disease Lab Results Last 24 Hours: 04/25/23 04/23/23 05:39 12:25 WBC 2.85 L RBC 2.91 L Hgb 10.3 L Hct 30.7 L MCV 105.5 H MCH 35.4 H MCHC 33.6 RDW Coeff of Sydni 12.8 Plt Count 192 Immature Gran % (Auto) 0.4 Neut % (Auto) 62.3 Lymph % (Auto) 26.7 [place] % (Auto) 10.2 H Eos % (Auto) 0.0 Baso % (Auto) 0.4 Neut # (Auto) 1.8 L Lymph # (Auto) 0.8 [place] # (Auto) 0.3 L Eos # (Auto) 0.0 Baso # (Auto) 0.0 Immature Gran # (Auto) 0.0 Sodium 137.7 Potassium 3.65 Chloride 109.2 H Carbon Dioxide 23.5 Anion Gap 8.65 BUN 28.6 H Creatinine 2.23 H D Estimated GFR (MDRD) 36.00 BUN/Creatinine Ratio 12.82 Glucose 166.7 H Calcium 9.40 Total Bilirubin 0.46 AST 37.3 ALT 26.1 Alkaline Phosphatase 74.9 Total Protein 7.12 Albumin 3.63 Globulin 3.49 Albumin/Globulin Ratio 1.04 Ur Random Sodium 29 Urine Creatinine 105.4 Discharge Instructions Discharge Planning: Discharge Planning > [address] Kirit Harris. Discharge Medications: Medications at Discharge (Home Meds & RX) Discharge Plan Discharge Discharge Orders: Discharge Patient (ONCE); Ordered 04/25/23 Ordered By: TONIA MARTINEZ Activity Restrictions/Additional Instructions: DISCHARGE TO HOME F/U WITH YOUR PCP YARA RECOMMEND REPEAT BLOOD WORK HOLD YOU METFORMIN UNTIL YOU SEE YOUR PCP STOP YOUR BLOOD PRESSURE MEDICINE VALSARTAN AND HYDROCHLOROTHIAZIDE AMLODIPINE, A BLOOD PRESSURE MEDICINE THAT IS SAFE FOR YOUR KIDNEYS HAS BEEN PRESCRIBED AVOID NSAIDS SUCH IBUPROFEN, ADVIL, [facility]: TONY PREDNISONE GIVEN TO HELP WITH BACK PAIN, THIS COULD INCREASE YOUR SUGARS PUSH FLUIDS UNTIL PCP FOLLOW UP Instructions: Acute Kidney Injury (GEN), Chronic Hypertension (DC) Patient Disposition: AMA Prescriptions: New amlodipine 5 mg Tablet 5 mg PO DAILY Qty: 30 0RF methylprednisolone [Medrol ([place] Francisco)] 4 mg tablets,dose pack 4 mg PO DAILY Qty: 21 0RF Rx Instructions: Take as directed Continued clopidogrel 75 mg tablet 75 mg PO DAILY rosuvastatin 40 mg tablet 40 mg PO DAILY carvedilol 6.25 mg tablet 6.25 mg PO BID aspirin 81 mg capsule 81 mg PO DAILY tadalafil 20 mg tablet 20 mg PO PRN PRN (Reason: sexual activity) Patient Comments: TAKE 12-1 TABLET BY MOUTH ONE HOUR PRIOR TO INTERCOURSE Discontinued metformin 1,000 mg tablet 1,000 mg PO BID valsartan [Diovan] 160 mg tablet 160 mg PO DAILY valsartan-hydrochlorothiazide 160-12.5 mg tablet 1 tab PO DAILY Did you review [place] ATTENDANCE CLERK for ALL controlled substances?: Not Applicable Discussed opioids are addictive and Narcan is available by prescription or from pharmacy.: No Condition: Good
[2023-04-25 10:41] VITALS: PULSE 62; RESP 18
[2023-04-25 12:07] VITALS: TEMP 96.6
[2023-04-25 12:09] VITALS: BP 154/76
== END 2023-04-25 11:50 | disposition left against medical advice (07) | DRG 683 ==
LOC: ED 11:29 → MEDSURG B 14:52
PROVIDERS: ADMIT Hospitalist; ATTEND Physician Assistant
DX: D72.819 Decreased white blood cell count, unspecified; Z53.29 Procedure and treatment not carried out because of patient's decision for other reasons; E11.65 Type 2 diabetes mellitus with hyperglycemia; E78.5 Hyperlipidemia, unspecified; F17.210 Nicotine dependence, cigarettes, uncomplicated; N17.9 Acute kidney failure, unspecified; M54.9 Dorsalgia, unspecified; Z20.822 Contact with and (suspected) exposure to COVID-19; I25.810 Atherosclerosis of coronary artery bypass graft(s) without angina pectoris; N40.0 Benign prostatic hyperplasia without lower urinary tract symptoms; I71.40 Abdominal aortic aneurysm, without rupture, unspecified; I72.3 Aneurysm of iliac artery; I10 Essential (primary) hypertension; R97.20 Elevated prostate specific antigen [PSA]